=== PATIENT | female | born 1955 | race Caucasian/White ===

== ENCOUNTER → 2024-08-21 | Outpatient (CLI) | payer MEDICARE, OTHER, SELFPAY ==
[2024-08-21 13:49] LABS: Free T4 (Free Thyroxine) 1.15 ng/dL (0.89-1.76); Thyroid Stimulating Hormone 4.15 uIU/mL (0.55-4.78)
== END | disposition home or self-care (01) ==
LOC: COPL 11:59
PROVIDERS: PCP Family Medicine; Referring Provider Student in an Organized Health Care Education/Training Program; Visit Provider Student in an Organized Health Care Education/Training Program
DX: G31.9 Degenerative disease of nervous system, unspecified (principal); R94.6 Abnormal results of thyroid function studies; G90.3 Multi-system degeneration of the autonomic nervous system; G23.8 Other specified degenerative diseases of basal ganglia
CPT/HCPCS: 36415; 84439; 84443

== ENCOUNTER → 2024-08-28 | Outpatient (CLI) | payer MEDICARE, OTHER, SELFPAY ==
[2024-08-28 13:24] LABS: Misc Send Out* See Sep Rpt
== END | disposition home or self-care (01) ==
LOC: SLDO 13:15
PROVIDERS: PCP Student in an Organized Health Care Education/Training Program; Referring Provider Student in an Organized Health Care Education/Training Program; Visit Provider Student in an Organized Health Care Education/Training Program
DX: G31.9 Degenerative disease of nervous system, unspecified (principal)
CPT/HCPCS: 82525